=== PATIENT | female | born 1965 | race Caucasian/White ===

== ENCOUNTER → 2016-06-17 | Outpatient (CLI) | payer BC | END | disposition home or self-care (01) | LOC: RAD 08:07 | PROVIDERS: ATTEND Internal Medicine Hematology & Oncology | DX: Z45.2 Encounter for adjustment and management of vascular access device (principal); C34.90 Malignant neoplasm of unspecified part of unspecified bronchus or lung | CPT/HCPCS: 36569; 76937; 77001; C1751 ==